=== PATIENT | male | born 1940 | race Caucasian/White ===

== ENCOUNTER → 2016-11-21 | Outpatient (CLI) | payer MEDICARE, MEDICAID ==
[~2016-11-21] MED LIST: ASPIRIN LO-DOSE81 MG PO; DULCOLAX10 MG R; DURAGESIC 25MC25 MCG TRANS; FLOMAX0.4 MG PO; GLUCOPHAGE500 MG PO; HYDRALAZINE HC100 MG PO; LIPITOR80 MG PO; LOPRESSOR100 MG PO; MILK OF MA400 MG/5 M PO; NITROSTAT0.4 MG SL; NORVASC5 MG PO; PERCOCET 5-3251 EACH PO; SENOKOT S (S1 TABLET PO; TYLENOL325 MG PO; ZANTAC (NON-FO150 MG PO; ZESTRIL40 MG PO
[2016-11-21 15:11] LABS: BILIRUBIN URINE NEGATIVE (NEGATIVE); BLOOD URINE NEGATIVE /UL (NEGATIVE); COLOR URINE YELLOW (YELLOW); GLUCOSE URINE NEGATIVE (NEGATIVE); KETONE URINE NEGATIVE (NEGATIVE); LEUKOCYTES URINE 25 /UL (NEGATIVE); NITRITE URINE NEGATIVE (NEGATIVE); PROTEIN URINE NEGATIVE (NEGATIVE); TURBIDITY URINE CLEAR (CLEAR); UROBILINOGEN URINE NORMAL (NORMAL)
[2016-11-21 15:23] LABS: RBC URINE NEGATIVE #/HPF (NEGATIVE)
[2016-11-21 15:24] LABS: CRYSTALS URINE CALCIUM OXALATE (NEGATIVE); EPITHELIAL URINE 0-2 #/HPF (NEGATIVE)
[2016-11-21 15:25] LABS: BACTERIA URINE MODERATE (NEGATIVE)
== END ==
LOC: LGSRV 14:45
PROVIDERS: Family Medicine
DX: N39.0 Urinary tract infection, site not specified (principal); Z79.2 Long term (current) use of antibiotics; Z87.440 Personal history of urinary (tract) infections